=== PATIENT | male | born 1995 | race Caucasian/White ===

== ENCOUNTER 2019-05-05 06:58 | Day surgery (SDC) | payer OTHER ==
[2019-05-05] MEDS ORDERED: cefTRIAXone 2 GM VIAL ONE (07:05)
[2019-05-05] MEDS ORDERED: BUPIVACAINE 0.25% PF 30 ML VIAL ONE (07:15)
[2019-05-05] MEDS ORDERED: EPINEPHrine 1 MG/ML AMP ONE (07:15)
[2019-05-05] MEDS ORDERED: LACTATED RINGERS 1,000 ML IV ONE ×2 (07:18→10:31)
--- NOTE | 2019-05-05 07:54 | ANESTHESIA ---
Pre-Anesthesia VS, & Labs - Diagnosis Left shoulder instability - Procedure left shoulder scope with labral repair Vital Signs: Temp Pulse Resp BP Pulse Ox 36.8 C 77 16 126/74 100 05/05/19 07:19 05/05/19 07:19 05/05/19 07:19 05/05/19 07:19 05/05/19 07:19 Height 5 ft 9 in Weight (kg) 77.11 kg - NPO >8 hours Home Medications and Allergies Home Medications: Ambulatory Orders No Known Home Medications 05/04/19 No Known Home Medications 05/04/19 Allergies/Adverse Reactions: Allergies Allergy/AdvReac Type Severity Reaction Status Date / Time No Known Drug Allergies Allergy Verified 05/05/19 07:29 Anes History & Medical History - Anesthetic History Family history of Anesthesia Complications: Denies Family history of Malignant Hyperthermia: Denies - Medical History Cardiovascular: reports: None Pulmonary: reports: None Gastrointestinal: reports: None Urinary: reports: None Neuro: reports: None Musculoskeletal: reports: Other Endocrine/Autoimmune: reports: None Blood Disorders: reports: None Skin: reports: None Smoking Status: Never smoker Psychosocial: reports: No issues indicated Exam General: Alert, Oriented x3, Cooperative, No acute distress Dental: WNL Mouth Openin Fingerbreadth Neck Mobility: Normal Mallampati classification: II Thyromental Distance: greater than 6 cm Respiratory: Lungs clear, Normal breath sounds, No respiratory distress, No accessory muscle use Cardiovascular: Regular rate, Normal S1, Normal S2, No murmurs Mental/Cognitive Status: Alert/Oriented X3, Normal for patient Plan Anesthesia Type: General, Interscalene Block (Left) Regional Block: Per Surgeon's request for Post Op pain control Consent for Procedure(s) Verified and Reviewed: Yes Code Status: Attempt Resuscitation ASA classification: 1-Healthy patient Is this case an emergency?: No
[2019-05-05] MEDS ORDERED: MIDAZOLAM 2 MG/2 ML VIAL ONE (08:01)
[2019-05-05] MEDS ORDERED: fentaNYL 100 MCG/2 ML VIAL ONE (08:01)
[2019-05-05] MEDS ORDERED: ATROPINE ABBOJECT 1 MG/10 ML SYRINGE IVP ONE (08:19)
--- NOTE | 2019-05-05 08:29 | ANESTHESIA PROCEDURE NOTE ---
Diagnosis: Left shoulder instability Procedure: Left Interscalene block Consent for Procedure(s) Verified and Reviewed: Yes Height and Weight: Height 5 ft 9 in Weight (kg) 77.11 kg Vital Signs: Temp Pulse Resp BP Pulse Ox 36.8 C 77 16 126/74 100 05/05/19 07:19 05/05/19 07:19 05/05/19 07:19 05/05/19 07:19 05/05/19 07:19 Allergies No Known Drug Allergies Allergy (Verified 05/05/19 07:29) Requesting Provider: Divya Location: Left Interscalene block ASA classification: 1-Healthy patient Is this case an emergency?: No Anes. Monitoring and Equipment: Non-invasive BP, Pulse oximetery Anes. Procedure Start Time: 08:07 Anes. Procedure Stop Time: 08:17 Procedure Notes: Timeout completed. Patient given 2mg versed and 100mcg fentanyl for sedation. Left neck prepped with chlorohexadine. Ultrasound was used to image the left brachial plexus. A total of 30ml of 0.5% Ropivicaine and 4mg Decadron was injected around the nerve bundle after negative aspiration. Adequate spread was noted. No paresthesia. Patient became pale, diaphoretic at the end of the procedure. Pulse was noted to be in the 50s. Patient was placed supine and legs elevated and symptoms were resolved. Otherwise, patient tolerated the procedure well. Full evaluation is pending.
[2019-05-05] MEDS ORDERED: ONDANSETRON 4 MG/2 ML VIAL IVP PRN (11:04)
[2019-05-05] MEDS ORDERED: oxyCODONE 5 MG TABLET PO PRN (11:04)
--- NOTE | 2019-05-05 11:13 | OPERATIVE REPORT ---
Operative Report - Other Other Information/Narrative: Date of Surgery: 05 May 2019 Pre-Op Diagnosis: Left shoulder posterior instability with labral tear Procedure: Left shoulder posterior labral repair and capsulorrhaphy. Left shoulder SLAP debridement Postop Diagnosis: Left shoulder posterior instability. Left shoulder glad lesion. Left shoulder SLAP tear, type I Primary Surgeon: Shemar Stokes Secondary Surgeon: None Complications: None EBL: 25 cc IMPLANTS: Knotless suture tack x5 by Arthrex POSTOPERATIVE PLAN: 0-2 weeks-Sling at all times. Pendulum exercises 5 times per day. 2-6 weeks-Passive range of motion with the following limits: FF to 90 with the palm up, ER without limitation, abduction to 90 with the palm up 6-12 weeks-Active range of motion in all planes without limitation. Isometric rotator cuff strengthening is allowed 12-16 weeks-Gradually increase strengthening 16 weeks and beyond-Introduce dynamic activities EXAMINATION UNDER ANESTHESIA: ROM: Full and equal to the contralateral side Anterior load and shift: Grade 2 bilaterally Posterior load and shift: Grade 1 on the right and grade 2 on the left with a click on the injured side Inferior sulcus: Grade 1 bilaterally ARTHROSCOPIC FINDINGS: Rotator interval: Injected Biceps tendon & SLAP: Large SLAP tear overlying the glenoid which was debrided. Biceps anchor was intact. Biceps tendon was intact Subscapularis: Normal Rotator Cuff: Normal HAGL: Normal Labrum: Posterior labral tear from 6:30 until it connected with the SLAP tear superiorly Glenoid Cartilage: Glad lesion measuring 5 mm x 15 mm associated with the labral tear directly posteriorly. This was debrided and covered with the repair Humeral Head Cartilage: Bare area had an appearance consistent with a shallow Hill-Sachs. INDICATION FOR SURGERY: 23-year-old male whom 7 months ago dislocated his shoulder posteriorly while playing flag football. He continued to have symptomatic instability and pain that was limiting many activities. MRI showed a displaced labral tear with potentially a bony component. Nonoperative managment failed to resolve symptoms. The risks, benefits, and alternatives were discussed. Risks included pain, bleeding, infection, damage to nearby structures, lack of symptom relief, implant complications, stiffness, need for further surgeries, DVT, PE, stroke, and even . He signed a written consent form. PROCEDURE IN DETAIL: The patient was met in the preoperative holding on the day of the procedure. Operative extremity was signed. Consent was verified. He desired to proceed. Regional anesthesia was obtained in the preoperative area. They were brought to the operating room and surrendered to anesthesia. Once general anesthesia was obtained they were placed in the lateral decubitus position with the operative side up. An axillary roll was placed and all bony prominences were well-padded. They were then prepped and draped in the standard sterile fashion. A surgical timeout was held to confirm the patient procedure, identity, procedure, laterality, allergies, images, and antibiotics. All were in agreement we proceeded. Balanced suspension was applied and a standard diagnostic arthroscopy was performed utilizing posterior and anterior superior portal sites. The anterior superior portal site was created under direct visualization. The findings of the diagnostic arthroscopy can be found above. A mid glenoid portal was then created under direct visualization bordering the subscapularis tendon. I then used a combination of high and low angled elevators to develop the labral tear and release it from off the glenoid neck. I extended from the the tear into a small portion of normal labrum down to 6:00. I then used to the pineapple rasp to finalize my release and abraded the bone to a bleeding bed. A sucker shaver was placed in the interval to debride any loose tissue and further abrade the glenoid neck. Any loose cartilage was debrided at that time. I then established a percutaneous 7:00 portal utilizing the Arthrex system. I then placed an anchor at 630 posteriorly. The suture was passed using an appropriate 45 degree suture lasso ensuring an adequate capsular shift from inferior to superior and from posterior to anterior. The labrum was secured using knotless technique. Appropriate tension was confirmed with a probe and the excess suture was cut. Using the same technique additional anchors were placed at 730, 830, 930, and 1030. Proper capsular tension was restored and a labral bumper was recreated. Balanced suspension was then released and final images were taken showing the humeral head centered in the glenoid. The portal sites were then closed with 3-0 Monocryl buried. Mastisol and Steri- Strips were applied. A sterile dressing and a sling was applied. He was awakened and transferred to the recovery room.
[2019-05-05 12:01] VITALS: BP 118/75
== END 2019-05-05 06:59 | disposition home or self-care (01) ==
LOC: SDS 06:58
PROVIDERS: ATTEND Orthopaedic Surgery
PROC: 0MM24ZZ Reattachment of Left Shoulder Bursa and Ligament, Percutaneous Endoscopic Approach (ICD-10-PCS; principal; 2019-05-05 08:45)
DX: S43.432A Superior glenoid labrum lesion of left shoulder, initial encounter (principal); M25.312 Other instability, left shoulder; S43.492A Other sprain of left shoulder joint, initial encounter; W18.39XA Other fall on same level, initial encounter; Y93.62 Activity, american flag or touch football; Y92.9 Unspecified place or not applicable; Y99.8 Other external cause status
CPT/HCPCS: 29807; C1713; J7120